=== PATIENT | male | born 1950 | race Caucasian/White ===

== ENCOUNTER 2018-11-20 07:31 | Emergency (ER) | payer BC, OTHER ==
--- OUTSIDE RECORDS SUMMARY | 2018-11-20 07:42 | XMS REPORT | Continuity of Care Document ---
:1950 External Reference #:[id number] Author Name Narda Montez Care Team Providers Name Role Phone Jayesh Islas MD - Family Care Team Information [place] Tier Medicine Problems Active Problems Provider Date History of polyp of colon Malik Greene M.D. Onset: 09/27/2011 Bradycardia, unspecified Roddy Valenzuela M.D., [facility] Onset: 10/07/2018 Essential hypertension Roddy Valenzuela M.D., [facility] Onset: 10/07/2018 Malaise and fatigue Roddy Valenzuela M.D., [facility] Onset: 10/07/2018 Edema Roddy Valenzuela M.D., [facility] Onset: 10/07/2018 Social History Type Date Description Comments Sex Unknown Tobacco Use Start: Unknown End: Quit 30 yrs ago Unknown ETOH Use Currently consumes alcohol socially Recreational Drug Use Denies Drug Use Tobacco Use Start: Unknown End: Patient is a former smoker Unknown Smoking Status Reviewed: 10/07/18 Patient is a former smoker Allergies, Adverse Reactions, Alerts Active Allergies Reaction Severity Comments Date Demerol nausea, turned levi 12/22/2014 Inactive Allergies NKDA 09/25/2011 Medications Active Medications SIG Qnty Indications Ordering Provider Date Lasix 1 by mouth in 90tabs Roddy Valenzuela 10/07/2018 40mg Tablets the in the Génesis Boyd, [facility] morning T.E.D. Anti-Embolism use on legs to 2Pairs I87.093 Jc, 02/20/2017 Stockings Thigh High control edema. Irais Thomas/Juno Capps [facility] Chlorthalidone 1 by mouth Unknown 25mg every day Tablets Divalproex Sodium Take One Tablet Unknown 250mg By Mouth Twice Tablets DR A Day Lisinopril Take One Tablet Unknown 40mg Tablets By Mouth Every Day Lyrica 1 po bid Unknown 300mg Capsules Fish Oil 2 by mouth Unknown 1200mg Capsules every day Multi For Him 1 by mouth Unknown Tablets every day (per pt if remember) Immunizations Description No Information Available Vital Signs Date Vital Result Comment 10/07/2018 7:08am BP Systolic Sitting Right Arm 134 mmHg BP Diastolic Sitting Right Arm 82 mmHg Heart Rate 47 /min Respiratory Rate 18 /min Height 69 inches 5'9" Weight 294.00 lb BMI (Body Mass Index) 43.4 kg/m2 BSA (Body Surface Area) 2.43 m2 [place] body weight in kilograms 73 kg O2 % BldC Oximetry 91 % Ora 05/28/2018 3:33pm BP Systolic 117 mmHg BP Diastolic 63 mmHg Body Temperature 97.9 F Heart Rate 49 /min Height 69 inches 5'9" Weight 289.00 lb BMI (Body Mass Index) 42.7 kg/m2 BSA (Body Surface Area) 2.42 m2 [place] body weight in kilograms 73 kg O2 % BldC Oximetry 93 % room air Pain Level 0 Results Description No Information Available Procedures Date Code Description Status 10/07/2018 34792 EKG-Tracing And Report Completed 05/01/2018 78750 Radiology, Foot, 2 Views Completed Medical Devices Description No Information Available Encounters Type Date Location Provider Dx Diagnosis Office Visit 10/07/2018 Cardiology Office Roddy Valenzuela R60.0 Localized edema 7:00penny Boyd M.D., [facility] R53.83 Other fatigue R00.1 Bradycardia, unspecified I10 Essential (primary) hypertension Office Visit 05/28/2018 3:15p Orthopaedic Office Taylor Cash M79.672 Pain in MD left foot M67.472 Ganglion, left ankle and foot G62.9 Polyneuropathy, unspecified Office Visit 05/14/2018 3:45p Orthopaedic Office Taylor Cash M79.672 Pain in MD left foot M86.9 Osteomyelitis, unspecified G62.9 Polyneuropathy, unspecified Office Visit 05/01/2018 1:45p Orthopaedic Office Cash, M67.472 Ganglion , left MD Taylor ankle and foot G62.9 Polyneuropathy, unspecified Assessments Date Code Description Provider 10/07/2018 R60.0 Localized edema Roddy Valenzuela M.D., [facility] 10/07/2018 R53.83 Other fatigue Roddy Valenzuela M.D., [facility] 10/07/2018 R00.1 Bradycardia, unspecified Roddy Valenzuela M.D., [facility] 10/07/2018 I10 Essential (primary) hypertension Roddy Valenzuela M.D., [facility] 05/28/2018 M79.672 Pain in left foot Taylor Cash MD 05/28/2018 M67.472 Ganglion, left ankle and foot Taylor Cash MD 05/28/2018 G62.9 Polyneuropathy, unspecified Taylor Cash MD 05/14/2018 M79.672 Pain in left foot Shailesh, MD Taylor 05/14/2018 M86.9 Osteomyelitis, unspecified Taylor Cash MD 05/14/2018 G62.9 Polyneuropathy, unspecified Taylor Cash MD 05/01/2018 M67.472 Ganglion, left ankle and foot Taylor Cash MD 05/01/2018 G62.9 Polyneuropathy, unspecified Taylor Cash MD Plan of Treatment Future Appointment(s):10/16/2018 3:20 pm - Roddy Vaelnzuela M.D., [facility] at Cardiology [id number]/25/2018 9:00 am - Del Meek DPM at Podiatry [id number] - Roddy Valenzuela M.D., FACCR60.0 Localized edemaNew Labs:Basic Metabolic Panel, Ordered: 10/07/18Comments:Will add lasix and check BMP in 1 weekR53.83 Other fatigueComments:He will taper his metoprolol to off in a week.R00.1 Bradycardia, unspecifiedComments:I believe it will improve after DC [id number] Essential (primary) hypertensionComments:He will be checking his BP and bring them in a couple of weeks for adjustment in his medicationsAllNew Medication:Lasix 40 mg - 1 by mouth in the in the morningFollow up:Follow up visit in two weeks. Functional Status Functional Condition Comment Date Status Glasses Active Mental Status Description No Information Available Referrals Description No Information Available
--- OUTSIDE RECORDS SUMMARY | 2018-11-20 07:42 | XMS REPORT | Continuity of Care Document ---
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 Onset: 09/27/2011 Bradycardia, unspecified Roddy Valenzuela M.D., [facility] Onset: 10/07/2018 Essential hypertension Roddy Valenzuela M.D., [facility] Onset: 10/07/2018 Malaise and fatigue Roddy Valenzuela M.D., [facility] Onset: 10/07/2018 Edema Roddy Valenzuela M.D., [facility] Onset: 10/07/2018 Social History Type Date Description Comments Sex Unknown Tobacco Use Start: Unknown End: Quit 30 yrs ago Unknown ETOH Use Currently consumes alcohol socially Recreational Drug Use Denies Drug Use Tobacco Use Start: Unknown End: Patient is a former smoker Unknown Smoking Status Reviewed: 10/16/18 Patient is a former smoker Allergies, Adverse Reactions, Alerts Active Allergies Reaction Severity Comments Date Demerol nausea, turned levi 12/22/2014 Inactive Allergies NKDA 09/25/2011 Medications Active Medications SIG Qnty Indications Ordering Provider Date Lasix 1 by mouth in 90tabs Roddy Valenzuela 10/07/2018 40mg Tablets the in the Génesis Boyd, [facility] morning T.E.D. Anti-Embolism use on legs to 2Pairs I87.093 Melaniejosekofi, 02/20/2017 Stockings Thigh High control edema. Irais Thomas/Juno Capps [facility] Chlorthalidone 1 by mouth Unknown 25mg every [...] Available Vital Signs Date Vital Result Comment 10/16/2018 10:44am BP Systolic Sitting Left Arm 144 mmHg BP Diastolic Sitting Left Arm 82 mmHg Heart Rate 87 /min Respiratory Rate 18 /min Height 69 inches 5'9" Weight 289.00 lb BMI (Body Mass Index) 42.7 kg/m2 BSA (Body Surface Area) 2.42 m2 [place] body weight in kilograms 73 kg O2 % BldC Oximetry 91 % Ora 10/07/2018 7:08am BP Systolic Sitting Right Arm 134 mmHg BP Diastolic Sitting Right Arm 82 mmHg Heart Rate 47 /min Respiratory Rate 18 /min Height 69 inches 5'9" Weight 294.00 lb BMI (Body Mass Index) 43.4 kg/m2 BSA (Body Surface Area) 2.43 m2 [place] body weight in kilograms 73 kg O2 % BldC Oximetry 91 % Ora Results Test Date Facility Test Result H/L Range Note Basic Metabolic 10/14/2018 [facility] Glucose 108 mg/dL High 74-106 1 [address] [place] [address] [phone] BUN 24 mg/dL High 7-18 Creatinine 1.0 mg/dL Normal 0.6-1.3 Glom Filtration Rate, Estimate >60 mL/min >60 If >60 mL/min >60 2 BUN/Creat 24.0 ratio Sodium 138 mmol/L Normal 136-145 Potassium 3.5 mmol/L Normal 3.5-5.1 Chloride 101 mmol/L Normal 98-107 Carbon Dioxide 32 mmol/L Normal 21-32 Anion Gap 5 mEq/L Low 8-16 Calcium 9.0 mg/dL Normal 8.5-10.1 1 R60.0 2 Note: Persistent reduction for 3 months or more in an eGFR <60 mL/min/1.73 m2 defines CKD. Patients with eGFR values >/=60 mL/min/1.73 m2 may also have CKD if evidence of persistent proteinuria is present. The original MDRD equation for estimated GFR is not valid for patients less than 18 years of age. Additional information may be found at www.kdoqi.org. Procedures Date Code Description Status 10/07/2018 34291 EKG-Tracing And Report Completed 05/01/2018 41401 Radiology, Foot, 2 Views Completed Medical Devices Description No Information Available Encounters Type Date Location Provider Dx Diagnosis Office Visit 10/16/2018 Cardiology Office Roddy Valenzuela R60.0 Localized edema 10:40a Génesis Boyd, [facility] R53.83 Other fatigue R00.1 Bradycardia, unspecified I10 Essential (primary) hypertension Office Visit 10/07/2018 7:00a Cardiology Office Roddy Valenzuela R60.0 Localized edema Génesis Boyd, [facility] R53.83 Other fatigue R00.1 Bradycardia, unspecified I10 Essential (primary) hypertension Office Visit 05/28/2018 3:15p Orthopaedic Office Taylor Cash, M79.672 Pain in MD left foot M67.472 Ganglion, left ankle and foot G62.9 Polyneuropathy, unspecified Office Visit 05/14/2018 3:45p Orthopaedic Office Taylor Cash M79.672 Pain in MD left foot M86.9 Osteomyelitis, unspecified G62.9 Polyneuropathy, unspecified Office Visit 05/01/2018 1:45p Orthopaedic Office Shailesh M67.472 Ganglion , left MD Taylor ankle and foot G62.9 Polyneuropathy, unspecified Assessments Date Code Description Provider 10/16/2018 R60.0 Localized edema Roddy Valenzuela M.D., [facility] 10/16/2018 R53.83 Other fatigue Roddy Valenzuela M.D., [facility] 10/16/2018 R00.1 Bradycardia, unspecified Roddy Valenzuela M.D., [facility] 10/16/2018 I10 Essential (primary) hypertension Roddy Valenzuela M.D., [facility] 10/07/2018 R60.0 Localized edema Roddy Valenzuela M.D., [facility] 10/07/2018 R53.83 Other fatigue Roddy Valenzuela M.D., [facility] 10/07/2018 R00.1 Bradycardia, unspecified Roddy Valenzuela M.D., [facility] 10/07/2018 I10 Essential (primary) hypertension Roddy Valenzuela M.D., [facility] 05/28/2018 M79.672 Pain in left foot Cash, MD Taylor 05/28/2018 M67.472 Ganglion, left ankle and foot Shailesh, MD Taylor 05/28/2018 G62.9 Polyneuropathy, unspecified Taylor Cash MD 05/14/2018 M79.672 Pain in left foot Shailesh, MD Taylor 05/14/2018 M86.9 Osteomyelitis, unspecified Taylor Cash MD 05/14/2018 G62.9 Polyneuropathy, unspecified Taylor Cash MD 05/01/2018 M67.472 Ganglion, left ankle and foot Shailesh, MD Taylor 05/01/2018 G62.9 Polyneuropathy, unspecified Taylor Cash MD Plan of Treatment Future Appointment(s):01/26/2019 3:40 pm - Roddy Valenzuela M.D., [facility] at Cardiology Jtftdb4111/25/2018 9:00 am - Del Meek DPM at Podiatry [id number] - Roddy Valenzuela M.D., FACCR60.0 Localized edemaNew Labs:Basic Metabolic Panel, Ordered: 10/16/18Comments:Improved. Will continue lasix. Will check BMP in 1 weekR53.83 Other fatigueComments:QhgmwzxwL60.1 Bradycardia, unspecifiedComments:[id number] Essential (primary) hypertensionComments:Seems to be control at homeAllFollow up:Follow up visit in three months. Functional Status Functional Condition Comment Date Status Glasses Active Mental Status Description No Information Available Referrals Description No Information Available
--- OUTSIDE RECORDS SUMMARY | 2018-11-20 07:42 | XMS REPORT | Continuity of Care Document ---
:1950 External Reference #:[id number] Author Name Roddy Valenzuela M.D., 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 Onset: 09/27/2011 Bradycardia, unspecified Roddy Valenzuela M.D., [facility] Onset: 10/07/2018 Essential hypertension Roddy Valenzuela M.D., [facility] Onset: 10/07/2018 Malaise and fatigue Roddy Valenzuela M.D., [facility] Onset: 10/07/2018 Edema Roddy Valenzuela M.D., [facility] Onset: 10/07/2018 Social History Type Date [...] 40mg Tablets the in the Génesis Boyd, [facility] morning T.E.D. Anti-Embolism use on legs to 2Pairs I87.093 Melaniejosekofi, 02/20/2017 Stockings Thigh High control edema. Irais Thomas/Juno Betancourt Chlorthalidone 1 by mouth Unknown 25mg every [...] kg/m2 BSA (Body Surface Area) 2.43 m2 [place] body weight in kilograms 73 kg O2 % BldC Oximetry 91 % Ora 05/28/2018 3:33pm BP Systolic 117 mmHg BP Diastolic 63 mmHg Body Temperature 97.9 F Heart Rate 49 /min Height 69 inches 5'9" Weight 289.00 lb BMI (Body Mass Index) 42.7 kg/m2 BSA (Body Surface Area) 2.42 m2 [place] body weight in kilograms 73 kg O2 % BldC Oximetry 93 % room air Pain Level 0 Results Description No Information Available Procedures Date Code Description Status 10/07/2018 51851 EKG-Tracing And Report Completed 05/01/2018 85647 Radiology, Foot, 2 Views Completed Medical Devices Description No Information Available Encounters Type Date Location Provider Dx Diagnosis Office Visit 10/07/2018 Cardiology Office Roddy Valenzuela R60.0 Localized edema 7:00a Génesis Boyd, [facility] R53.83 Other fatigue R00.1 Bradycardia, unspecified I10 [...] 10/07/2018 R60.0 Localized edema Roddy Valenzuela M.D., [facility] 10/07/2018 R53.83 Other fatigue Rdody Valenzuela M.D., [facility] 10/07/2018 R00.1 Bradycardia, unspecified Roddy Valenzuela M.D., [facility] 10/07/2018 I10 Essential (primary) hypertension Roddy Valenzuela M.D., [facility] 05/28/2018 M79.672 Pain in left foot Taylor Cash MD 05/28/2018 M67.472 Ganglion, left ankle and foot Taylor Cash MD 05/28/2018 G62.9 Polyneuropathy, unspecified Taylor Cash MD 05/14/2018 M79.672 Pain in left foot Taylor Cash MD 05/14/2018 M86.9 Osteomyelitis, unspecified Taylor Cash MD 05/14/2018 G62.9 Polyneuropathy, unspecified Taylor Cash MD 05/01/2018 M67.472 Ganglion, left ankle and foot Taylor Cash MD 05/01/2018 G62.9 Polyneuropathy, unspecified Taylor Cash MD Plan of Treatment Future Appointment(s):10/16/2018 3:20 pm - Roddy Valenzuela M.D., [facility] at Cardiology Kamlgh7911/25/2018 9:00 am - Del Meek DPM at Podiatry [id number] - Roddy Valenzuela M.D., FACCR60.0 Localized edemaNew Labs:Basic Metabolic Panel, Ordered: 10/07/18Comments:Will add lasix and check BMP in 1 weekR53.83 Other fatigueComments:He will taper his metoprolol to off in a week.R00.1 Bradycardia, unspecifiedComments:I believe it will improve after DC [id number] Essential (primary) hypertensionComments:He will be checking his [...]
[2018-11-20 07:51] VITALS: BP 147/86
--- NOTE | 2018-11-20 08:05 | UC ---
Shoulder Pain HPI - HPI Summary HPI Summary: Patient presents to urgent care for evaluation of injuries related to a fall he sustained 8 days ago. 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 Patient states he tripped over a pallet fell landing on outstretched arms. Patient did not strike his head. Patient did not loose consciousness. Patient states initially had pain in his neck right posterior shoulder bilateral knees bilateral thumbs. Patient states since this time he continues to have discomfort. Patient states everything is "sore" but states pain is worse in his right anterior shoulder films and knees. Patient has not taken any analgesia for pain. Patient has not seen anybody for his injuries prior to today. Patient had no open wounds after his fall. Patient is not on any blood thinners. Patient denies headache or vision changes. Patient is right-hand dominant. Patient states he does have a history of prediabetes and has paresthesias in his feet. Patient states he takes Lyrica for this. Patient states his primary told him he should not take ibuprofen. Patient is on no anticoagulation. Patient's medications reviewed this visit. - History of Current Complaint Chief Complaint: UCGeneralIllness Stated Complaint: RIGHT SHOULDER, BILATERAL KNEES/HANDS (WC) Time Seen by Provider: 11/20/18 08:04 Hx Obtained From: Patient Pain Intensity: 4 - Allergies/Home Medications Allergies/Adverse Reactions: Allergies Allergy/AdvReac Type Severity Reaction Status Date / Time meperidine [From Demerol] Allergy Nausea Verified 11/20/18 07:51 Home Medications: Home Medications Furosemide TAB* [Lasix TAB*] 1 tab PO DAILY 11/20/18 [History Confirmed 11/20/18 ] RX: Metoprolol Tartrate TAB* [Lopressor TAB*] 1 tab PO DAILY 11/20/18 [History Confirmed 11/20/18] PMH/Surg Hx/FS Hx/Imm Hx Endocrine History: Diabetes - Prediabetes Cardiovascular History: Hypertension - Surgical History Surgical History: Yes Surgery Procedure, Year, and Place: pyloric obstruction as a child. T&A. R knee arthroscopy - Family History Known Family History: Positive: Non-Contributory - Social History Occupation: Employed Full-time Lives: With Family Alcohol Use: Weekly Substance Use Type: None Smoking Status (MU): Never Smoked Tobacco Review of Systems All Other Systems Reviewed And Are Negative: Yes Constitutional: Positive: Negative Skin: Positive: Negative Respiratory: Positive: Negative Cardiovascular: Positive: Negative Gastrointestinal: Positive: Negative Genitourinary: Positive: Negative Musculoskeletal: Positive: Other: - Right shoulder, bilateral knees, bilateral thumbs. Neurological: Negative: Paresthesia Physical Exam - Summary Physical Exam Summary: Vital Signs Reviewed: Yes A+Ox3, no distress Eyes: Conjunctiva Clear ENT: Hearing grossly normal mmoist, uvula midline, no exudate, no erythema Neck: Positive: Supple Respiratory: Positive: No respiratory distress, No accessory muscle use + CTA throughout no w/r Cardiovascular: RRR nl s1, s2 no m/r CBT <2 sec abd soft + BS nt/nd no guarding, no distension Musculoskeletal Exam: No spinous process pain c/t/l/s Full AROM c spine shoulders: Full abduct, extend + flex/ext elbows + pronate/supinate flex/ext wrist + TTP right anterior shoulder - anterior/superior margin of shoulder + SLE + flex/ext knee, ankle + great toe extension. + flex/ext/abduct adduct mcp thumb b/l no snuffbox pain Neurological: Positive: Alert, + sensation throughout 5/5 grasp thumb up, a ok , finger cross, finger spread Psychological: Positive: Normal Response To examiner Skin: Positive: no rash, no ecchymosis no open wounds Triage Information Reviewed: Yes Vital Signs: Initial Vital Signs Temp 97.5 F 11/20/18 07:46 Pulse 72 11/20/18 07:46 Resp 16 11/20/18 07:46 BP 147/86 11/20/18 07:46 Pulse Ox 95 11/20/18 07:46 Diagnostics - Radiology No standard instances Radiology Interpretation Completed By: Radiologist - Patient Name: RAMYA PAULINO Medical Record#: [id number] Ordering Physician: Leah Mohan MD Acct.#: [id number] : 1950 Age: 67 Sex: M Location: [facility] Exam Date: 11/20/18814 ADM Status: REG ER Order Information: SHOULDER RIGHT 2+ VWS Accession Number: [id number] CPT: 77964 HISTORY: fell 1 weel ago, pain anterior shoulder . COMPARISONS: None relevant available at the time of dictation. VIEWS: 4, Frontal internal rotation, external rotation, outlet, and axillary views of the right shoulder FINDINGS: BONE DENSITY: Normal. BONES: There is no displaced fracture. JOINTS: There is mild to moderate osteoarthritis of the a.c. and glenohumeral joints. ALIGNMENT: There is no dislocation. SOFT TISSUES: There is minimal soft tissue calcification along the greater tuberosity. OTHER FINDINGS: None. IMPRESSION: 1. MINIMAL SOFT TISSUE CALCIFICATION SUGGESTIVE OF A CALCIFIC TENDINOPATHY. 2. OSTEOARTHRITIS. 3. NO ACUTE OSSEOUS INJURY. IF SYMPTOMS PERSIST, RECOMMEND REPEAT IMAGING. <Electronically signed by Connor Cuello MD in [place]> 11/20/18831 Dictated By: Connor Cuello MD Dictated Date/Time: 11/20 Transcribed Date/Time: 11/20/18830 Copy to: CC:Jayesh Alexis Jr, MD; Leah Mohan MD Imaging - [facility] Imaging - [facility] [address] [address] ph ) ph ([phone]) ph ([phone]) This report is only to be considered final once signed by the Provider(s) as displayed in the "< Electronically Signed by >" field (s). Absence of a signature indicates the report is in a draft status and still needs to be finalized. In the event this document was created by someone other than the signing Provider, the individual initiating the document will be listed in the "Entered by:" or "Dictated by:" juarez. 1 of 1 Re-Evaluation - Re-Evaluation First Eval Comment: reviewed imaging with pt. recommend ice, apap. work note 15 pound limit. referral to Dr. York, [facility]. employer forms completed. wc forms completed Shoulder Course/Dx - Course Course Of Treatment: Patient presents to urgent care for evaluation of injuries status post a fall one week ago at work. Patient states he fell on his outstretched hands. Patient did not strike his head. Patient states initially had pain in his neck shoulder bilateral hands bilateral knees. Patient states he persists to have pain in his shoulders R> left. Pt also with pain in bilateral thumbs. PT has a history of paresthesia of the feet related to pre-diabetes - takes Lyrica. Pt has not taken any analgesia for injuries related to fall. Has not been evaluated for injuries prior to this encounter. Pt with good range of motion ext x 4. Pt with mild focal pain anterior, superior aspect of right shoulder with direct palp - but has good ROM I discussed with patient symptoms are likely related to musculoskeletal discomfort. Low suspicion for any fractures. We'll check an x-ray of the right shoulder as he does have focal tenderness. Recommend patient take analgesia for pain. Patient states he was advised not to take much Motrin so advised him he can take Tylenol. Recommended ice and stretching. We'll refer patient to Dr. York for follow-up. Patient did request folliculitis paperwork for workplace restrictions. Will do so and a copy will be placed in the chart. Patient comfortable in agreement with plan we'll reassess following imaging. - Differential Dx/Diagnosis Provider Diagnosis: Tendonitis, Muscle strain Discharge ED - Sign-Out/Discharge Documenting (check all that apply): Patient Departure All imaging exams completed and their final reports reviewed: Yes - Discharge Plan Condition: Stable Disposition: HOME Patient Education Materials: Muscle Strain (ED), Tendinitis (ED) Forms: *Work Release Referrals: [facility] [Provider Group] (Okay to request evaluation in the [place] [facility]) Jayesh Alexis MD [Primary Care Provider] - Fox York MD [Medical Doctor] - Additional Instructions: - Okay to take Tylenol every 6-8 hours for pain - apply ice (wrapped in a towel) 20 minutes at a time, 2-3 times a day -Contact Dr. York - the occupation health provider - or the sports medicine provider today to schedule a follow-up appointment - Contact your doctor or return with questions or concerns - Billing Disposition and Condition Condition: STABLE Disposition: Home
[2018-11-20] MEDS: Acetaminophen TAB* 325 MG PO ONE (08:26)
== END 2018-11-20 09:04 | disposition home or self-care (01) ==
LOC: UCCORT 07:31
DX: M77.9 Enthesopathy, unspecified (principal); T14.8XXA Other injury of unspecified body region, initial encounter; W18.09XA Striking against other object with subsequent fall, initial encounter; Y93.9 Activity, unspecified; Y92.9 Unspecified place or not applicable; Z88.8 Allergy status to other drugs, medicaments and biological substances; R73.03 Prediabetes; I10 Essential (primary) hypertension
CPT/HCPCS: 99212; A9270-GY; G0463

== ENCOUNTER 2018-12-03 16:26 | Emergency (ER) | payer OTHER ==
[2018-12-03 16:55] VITALS: BP 119/50
--- NOTE | 2018-12-03 17:12 | UC ---
Shoulder Pain HPI - HPI Summary HPI Summary: 68-year-old male who tripped and fell about a week ago injuring his right shoulder. He is here for a return to work clearance. He denies any further pain. He states occasionally he will have some tingling in both thumbs which he thinks is a result of his following has had that before. - History of Current Complaint Chief Complaint: UCUpperExtremity Stated Complaint: RT SHOULDER F/U Time Seen by Provider: 12/03/18 17:08 Hx Obtained From: Patient Onset/Duration: Sudden Onset Timing: Constant Severity Initially: Mild Severity Currently: None Pain Intensity: 0 Aggravating Factor(s): Nothing Alleviating Factor(s): Nothing Associated Signs And Symptoms: Positive: Negative - Allergies/Home Medications Allergies/Adverse Reactions: Allergies Allergy/AdvReac Type Severity Reaction Status Date / Time meperidine [From Demerol] Allergy Nausea Verified 12/03/18 16:49 PMH/Surg Hx/FS Hx/Imm Hx Previously Healthy: Yes Endocrine History: Diabetes Cardiovascular History: Hypertension - Surgical History Surgical History: Yes Surgery Procedure, Year, and Place: pyloric obstruction as a child. T&A. R knee arthroscopy - Family History Known Family History: Positive: Non-Contributory - Social History Occupation: Employed Full-time Alcohol Use: Weekly Substance Use Type: None Smoking Status (MU): Former Smoker Type: Cigarettes Length of Time of Smoking/Using Tobacco: 2 PPD x 15 Years When Did the Patient Quit Smoking/Using Tobacco: 1981 Review of Systems All Other Systems Reviewed And Are Negative: Yes Motor: Positive: Negative Neurovascular: Positive: Negative Musculoskeletal: Positive: Negative Neurological: Positive: Negative Psychological: Positive: Negative Is Patient Immunocompromised?: No Physical Exam Triage Information Reviewed: Yes Appearance: Well-Appearing, No Pain Distress, Well-Nourished Vital Signs: Initial Vital Signs Temp 98 F 12/03/18 16:48 Pulse 72 12/03/18 16:48 Resp 18 12/03/18 16:48 BP 119/50 12/03/18 16:48 Pulse Ox 94 12/03/18 16:48 Vital Signs Reviewed: Yes Respiratory: Positive: Lungs clear, Normal breath sounds, No respiratory distress, No accessory muscle use Cardiovascular: Positive: RRR, No Murmur, Pulses Normal, Brisk Capillary Refill Musculoskeletal Exam: Normal Musculoskeletal: Positive: Strength Intact, ROM Intact, Other: - Good peripheral pulses neuro sensation capillary refill. Full range of motion without any pain. Good arm against resistance. Shoulder is nontender on palpation. Neurological Exam: Normal Neurological: Positive: Alert, Muscle Tone Normal Psychological Exam: Normal Skin Exam: Normal Shoulder Course/Dx - Course Course Of Treatment: Patient has completely resolved from his fall. He was given a work clearance to return to work without restrictions. - Differential Dx/Diagnosis Provider Diagnosis: Recent shoulder injury Discharge ED - Sign-Out/Discharge Documenting (check all that apply): Patient Departure All imaging exams completed and their final reports reviewed: No Studies - Discharge Plan Condition: Good Disposition: HOME Forms: *Work Release Referrals: Jayesh Islas MD [Primary Care Provider] - Additional Instructions: Follow-up with your primary care provider as needed. - Billing Disposition and Condition Condition: GOOD Disposition: Home - Attestation Statements Provider Attestation: Per institutional requirements, I have reviewed the chart, however, I was not consulted specifically or made aware of this patient by the midlevel provider. I did not personally evaluate, interact with , or disposition this patient.
== END 2018-12-03 17:19 | disposition home or self-care (01) ==
LOC: UCCORT 16:26
DX: Z09 Encounter for follow-up examination after completed treatment for conditions other than malignant neoplasm (principal); S49.91XA Unspecified injury of right shoulder and upper arm, initial encounter; W01.0XXA Fall on same level from slipping, tripping and stumbling without subsequent striking against object, initial encounter; Y92.9 Unspecified place or not applicable; Z88.5 Allergy status to narcotic agent; E11.9 Type 2 diabetes mellitus without complications; I10 Essential (primary) hypertension; Z87.891 Personal history of nicotine dependence
CPT/HCPCS: 99211; G0463